=== PATIENT | male | born 1950 ===

== ENCOUNTER 2020-04-02 08:01 | Outpatient (CLI) | payer MEDICARE, OTHER ==
--- NOTE | 2020-04-02 10:13 | MRI ---
MR OF THE PELVIS WITH AND WITHOUT CONTRAST INDICATION: Elevated PSA COMPARISON: None TECHNIQUE: Multiplanar, multisequence MR images were obtained of the pelvis with and without IV contr ast. 20 cc of MultiHance was utilized for the examination. The examination was reviewed on a separate [employer] 3-D workstation for multiplanar metric evaluation. FINDINGS: Prostate size: The prostate measured 5.3 x 4.3 x 4.0cm. 41.11 cc. Peripheral zone: There is a 1.2 x 0.6 cm T2 hyperintense, hypointense ADC lesion involving the medical geneticist ior lateral peripheral zone of the mid prostate with associated abnormal dynamic contrast enhancement. No additional focal lesion is evident. Central zone: No suspicious signal abnormality or focal lesion. Neural vasculature: There is asymmetric nodular prominence involving the right prostatic capsule teena cent to the above-mentioned peripheral zone lesion within the right mid gland with nodularity of the adjacent neurovascular consistent with neurovascular invasion. Regional lymphadenopathy: No pathologically enlarged lymph nodes evident. There is a 7 mm lymph node seen adjacent to the left external iliac vasculature. Dynamic contrast enhancement: Positive as above Osseous structures: No suspicious osseous lesion is identified. Additional findings: None.. IMPRESSION: 1. PIRADS 4- High(clinically significant cancer is likely to be present.) 2. Findings suspicious for right-sided neurovascular invasion. 3. No pathologically enlarged lymph nodes are evident. There is a mildly prominent 7 mm lymph node se en adjacent to the left external iliac vasculature.
== END 2020-04-02 08:02 | disposition home or self-care (01) ==
LOC: TBSIIMAG 08:01
PROVIDERS: ATTEND Urology
DX: R97.20 Elevated prostate specific antigen [PSA] (principal)
CPT/HCPCS: 72197; 82565